=== PATIENT | male | born 1960 | race African-American/Black ===

== ENCOUNTER 2019-08-07 15:58 | Emergency (ER) | payer MEDICAID ==
[~2019-08-07] VITALS: Ht 165.1 cm; Wt 127.0 kg
[2019-08-07 16:20] VITALS: BP 165/89
== END 2019-08-07 17:33 | disposition home or self-care (01) ==
LOC: ER 16:01
DX: F41.9 Anxiety disorder, unspecified (principal); E78.5 Hyperlipidemia, unspecified; I10 Essential (primary) hypertension; Z76.0 Encounter for issue of repeat prescription

== ENCOUNTER 2019-09-13 10:04 | Emergency (ER) | payer MEDICAID ==
[~2019-09-13] VITALS: Ht 165.1 cm; Wt 130.6 kg
[2019-09-13 10:40] VITALS: BP 171/89
== END 2019-09-13 10:53 | disposition home or self-care (01) ==
LOC: ER 10:04
DX: I10 Essential (primary) hypertension (principal); E78.5 Hyperlipidemia, unspecified; Z76.0 Encounter for issue of repeat prescription

== ENCOUNTER 2020-03-08 08:23 | Emergency (ER) | payer MEDICAID ==
[~2020-03-08] VITALS: Ht 167.6 cm; Wt 131.5 kg
[2020-03-08 09:04] VITALS: BP 155/85
== END 2020-03-08 09:35 | disposition home or self-care (01) ==
LOC: ER 08:23
DX: H60.91 Unspecified otitis externa, right ear (principal); H66.91 Otitis media, unspecified, right ear; E78.5 Hyperlipidemia, unspecified; I10 Essential (primary) hypertension